=== PATIENT | female | born 1990 | race Caucasian/White ===

== ENCOUNTER 2020-12-26 05:32 | Outpatient (RCR) | payer BC ==
[~2020-12-26] VITALS: Ht 160 cm; Wt 66.0 kg
[~2020-12-26 05:32] MED LIST: AC500T PO; ACHD5005 PO; AGM875T PO; FAMO10TA43 PO; IBUP-30 PO; L.AC1CAP6 PO; MAG355OR PO; MECL-149 PO; MPR22TI TP; NAPR-243 PO; OMEP20CA18 PO; ONDN4T PO
== END 2020-12-26 10:54 | disposition home or self-care (01) ==
LOC: PREOP 05:32
PROVIDERS: ATTEND Surgery
DX: Z01.812 Encounter for preprocedural laboratory examination (principal); K21.9 Gastro-esophageal reflux disease without esophagitis; Z20.822 Contact with and (suspected) exposure to COVID-19
CPT/HCPCS: 87635

== ENCOUNTER 2020-12-28 11:22 | Day surgery (SDC) | payer BC ==
[~2020-12-28] VITALS: Ht 160 cm; Wt 66.0 kg
[2020-12-28] VITALS (9 sets, daily range): BP systolic 99–124; BP diastolic 57–74
[~2020-12-28 11:22] MED LIST changes: +LACTATED RINGERS 1,000 ML IV ONE
[2020-12-28] MEDS ORDERED: LACTATED RINGERS 1,000 ML IV STA (11:24)
[2020-12-28] MEDS ORDERED: LIDOCAINE JELLY 2% 6 ML SYRINGE MM PRN (11:30)
[2020-12-28] MEDS ORDERED: HURRICAINE EXT TUBE (BENZOCAINE) XX PRN (11:30)
[2020-12-28] MEDS ORDERED: PROPOFOL INJECTION 50 ML IV ONE ×2 (12:08→12:45)
[2020-12-28] MEDS ORDERED: MIDAZOLAM 2 MG/2 ML (VERSED) VIAL ONE (12:09)
--- NOTE | 2020-12-28 12:28 | Progress Note-Pre Operative ---
Pre-Operative Progress Note H&P Reviewed The H&P was reviewed, patient examined and no changes noted. Date Seen by Provider: Dec 28, 2020 Time Seen by Provider: 11:00 Date H&P Reviewed: Dec 28, 2020 Time H&P Reviewed: 11:00 Pre-Operative Diagnosis: GERD, dysphagia ROGELIO MILES MD Dec 28, 2020 12:28
--- NOTE | 2020-12-28 12:29 | Progress Note-Post Operative ---
Post-Operative Progess Note Surgeon (s)/Pulmonary Nurse Practitioner (s) Surgeon ROGELIO MILES MD Pulmonary Nurse Practitioner: none Pre-Operative Diagnosis GERD, dysphagia Post-Operative Diagnosis reflux eosphagitis(stage2-3), small HH(2cm), moderate gastritis, prepyloric stricture Procedure & Operative Findings Date of Procedure 12/28/20 Procedure Performed/Findings EGD with bx and balloon dilatation. Anesthesia Type mac Estimated Blood Loss Estimated blood loss (mL): minimal Specimens/Packing Specimens Removed ge jxn, antrum ROGELIO MILES MD Dec 28, 2020 12:29
[2020-12-28] MEDS ORDERED: HYDROcodone/APAP 5 MG/325 MG (LORTAB) TAB PO PRN (12:30)
[2020-12-28] MEDS ORDERED: ACETAMINOPHEN 325 MG TABLET PO PRN (12:30)
[2020-12-28] MEDS ORDERED: ONDANSETRON 4 MG/2 ML (SDV) Z0FRAN IVP PRN (12:30)
[2020-12-28] MEDS ORDERED: morphine INJ 10 MG/ML 1ML (SYR OR VIAL) IVP PRN ×2 (12:30)
[2020-12-28] MEDS ORDERED: LIDOCAINE JELLY 2% 6 ML SYRINGE ONE (12:30)
[2020-12-28] MEDS ORDERED: PANT40TA52 PO (14:11)
--- NOTE | 2020-12-28 16:04 | Anesthesia-General Post-Op ---
MAC Patient Condition Mental Status/LOC: Same as Preop Cardiovascular: Satisfactory Nausea/Vomiting: Absent Respiratory: Satisfactory Pain: Controlled Complications: Absent Post Op Complications Complications None Follow Up Care/Instructions Patient Instructions None needed. Anesthesiology Discharge Order Discharge Order Patient was seen after the procedure and she was doing well, no complaints, stable vital signs, no apparent adverse anesthesia problems. CHIP WHITNEY DO Dec 28, 2020 16:04
--- NOTE | 2020-12-28 16:43 | OPERATIVE REPORT ---
DATE OF SERVICE: 12/28/2020 ATTENDING PRIMARY CARE PHYSICIAN: Zulma Mckeon DO. PREOPERATIVE DIAGNOSES: Gastroesophageal reflux disease and nausea. POSTOPERATIVE DIAGNOSES: Reflux esophagitis stage II, small hiatal hernia 2 cm in size, and moderate severity gastritis. No distal obstructions. PROCEDURE PERFORMED: EGD with biopsy. SURGEON: Rogelio Miles MD. ANESTHESIA: Monitored anesthesia care. ESTIMATED BLOOD LOSS: Minimal. FINDINGS: Reflux esophagitis stage II, small hiatal hernia 2 cm in size, and moderate severity gastritis. No distal obstructions. DISPOSITION: The patient tolerated the procedure well. INDICATIONS FOR PROCEDURE: The patient is a 30-year-old female referred over to us for epigastric pain and associated nausea. She states she has had this for some time; however, in the past four months, this has become much more significant. She does not report any episodes of vomiting as well as no hematemesis and no coffee ground emesis. DESCRIPTION OF PROCEDURE: The patient was brought to the endoscopy suite and laid in the left lateral decubitus position. After adequate IV pain and sedative medications and monitored anesthesia care, the mouthpiece was applied. The endoscope was then placed in the mouth, visualizing the pharynx and hypopharyngeal region. Vocal cords, epiglottis and vallecula identified and appeared to be normal. Endoscope was then gently intubated into the esophageal opening and esophagus insufflated. The endoscope was then advanced through the first, second and third portions. Esophagus at the level of the GE junction, reflux esophagitis stage II identified. There were no ulcers or strictures identified in this region and a biopsy was taken with forceps with good hemostasis. The endoscope was then advanced in the stomach and endoscope retroflexed, visualizing a small hiatal hernia approximately 2 cm in size. There was also a moderate severity gastritis. No formal ulcerations, polyps or any neoplasms identified. A biopsy was taken of the stomach antrum to rule out H. pylori with visualization of good hemostasis. The endoscope was then advanced through the pylorus and the first and second portion of the duodenum, which appeared normal with no distal obstructions. The endoscope was then slowly withdrawn while taking a second look and suctioning of residual air with no additional findings. The patient tolerated the procedure well. We will recommend the necessary lifestyle and diet accommodation including small and more frequent meals, avoidance of eating at night as well as head elevation while lying supine at night. She also needs to avoid caffeinated beverages, spicy, greasy and acidic foods. We will also start her on Protonix 40 mg daily. Job ID: [id number] DocumentID: [id number] Dictated Date: 12/28/2020 13:09:10 Bin Cleaner Date: 12/28/2020 16:42:29 Dictated By: ROGELIO MILES MD MTDD
== END 2020-12-28 14:20 | disposition home or self-care (01) ==
LOC: ENDO 11:22
PROVIDERS: ATTEND Surgery
DX: K29.50 Unspecified chronic gastritis without bleeding (principal); K21.00 Gastro-esophageal reflux disease with esophagitis, without bleeding; K44.9 Diaphragmatic hernia without obstruction or gangrene; F41.9 Anxiety disorder, unspecified; Z79.899 Other long term (current) drug therapy
CPT/HCPCS: 88305